=== PATIENT | male | born 1965 | race Caucasian/White ===

== ENCOUNTER 2016-04-07 17:34 | Emergency (ER) | payer SELFPAY ==
[2016-04-07 17:42] VITALS: BP 122/94
--- NOTE | 2016-04-07 18:12 | ED Physician Documentation ---
Sore Throat/Dental Pain - HISTORIAN Historian: patient - HPI Stated Complaint: Dental Pain Chief Complaint: Dental Pain Additional Information: recurrent issue Onset: hours (5) Context: Dental Caries Associated Symptoms: moderate Worsened By: nothing Further Comments: no - ROS CONST: no problems CVS/RESP: none GI/: denies: problems urinating, nausea, vomiting MS/SKIN/LYMPH: denies: muscle aches, rash, leg swelling, ankle swelling NEURO/PSYCH: none - PAST HX Past History: none Other History: none Immunizations: UTD Allergies/Adverse Reactions: Allergies Allergy/AdvReac Type Severity Reaction Status Date / Time No Known Allergies Allergy Unverified 04/07/16 17:42 Home Medications: Ambulatory Orders Medication Instructions Recorded NK [NK] 04/07/16 - SOCIAL HX Smoking History: cigarettes Alcohol Use: none Drug Use: none - FAMILY HX Family History: Yes - VITAL SIGNS Vital Signs: Vital Signs Temp Pulse Resp BP Pulse Ox 98 F 97 H 18 122/94 99 04/07/16 17:35 04/07/16 18:05 04/07/16 18:05 04/07/16 18:05 04/07/16 18:05 - REVIEWED ASSESSMENTS Nursing Assessment Reviewed: Yes Vitals Reviewed: Yes Progress - Results/Orders Results/Orders: no testing ordered - Progress Progress: stable entire time in er Critical Care Note - Critical Care Note Total Time (mins): 0 ED Results Lab/Radiology - Lab Results Lab Results: none ordered - Radiology Radiology Impressions: none ordered Dental Pain Physical Exam - EXAM General Appearance: alert, mild distress Head/Neck: head nml inspection, trachea midline, no lymphadenopathy, thyroid nml. No: pain over sinuses Eyes: eyes nml inspection, PERRL Mouth/Throat: lips nml, pharynx nml, dental tenderness, gum swelling around teeth, widespread dental decay Ear/Nose: nml inspection Respiratory: no resp. distress, breath sounds nml CVS: reg. rate & rhythm, heart sounds nml Abdomen: soft, no organomegaly, normal bowel sounds, no abdominal bruit, no distension, non-tender Extremities: non-tender, nml ROM Skin: warm/dry, normal color Neuro/Psych: weakness, numbness Discharge Clincal Impression: Gingivostomatitis Referrals: Primary Doctor,No [Primary Care Provider] - 2 Days Home Medications: Ambulatory Orders NK [NK] 04/07/16 Comments: discharged in stable condition with script for amoxicillin 500 mg 1 p.o. tid #30 , one refill Condition: Stable Disposition: 01 HOME, SELF-CARE Decision to Admit: NO Decision Time: 17:55
== END 2016-04-07 18:05 | disposition home or self-care (01) ==
LOC: ED 17:34
DX: K02.9 Dental caries, unspecified (principal)
CPT/HCPCS: 99283